=== PATIENT | female | born 1970 | race Hispanic/Latino ===

== ENCOUNTER 2021-08-22 12:19 | Outpatient (CLI) | payer OTHER | END 2021-08-22 12:20 | disposition home or self-care (01) | LOC: CSHMAMMO 12:19 | PROVIDERS: ATTEND Family Medicine | DX: Z12.31 Encounter for screening mammogram for malignant neoplasm of breast (principal); N64.89 Other specified disorders of breast | CPT/HCPCS: 77063; 77067 ==

== ENCOUNTER 2021-08-29 09:35 | Outpatient (CLI) | payer OTHER | END 2021-08-29 09:36 | disposition home or self-care (01) | LOC: CSHMAMMO 09:35 | PROVIDERS: ATTEND Family Medicine | DX: R92.1 Mammographic calcification found on diagnostic imaging of breast (principal) | CPT/HCPCS: G0279 ==

== ENCOUNTER 2022-02-27 09:05 | Outpatient (CLI) | payer OTHER | END 2022-02-27 09:06 | disposition home or self-care (01) | LOC: CSHMAMMO 09:05 | PROVIDERS: ATTEND Family Medicine | DX: R92.8 Other abnormal and inconclusive findings on diagnostic imaging of breast (principal); R92.1 Mammographic calcification found on diagnostic imaging of breast | CPT/HCPCS: G0279 ==